=== PATIENT | female | born 1985 | race Two or more races ===

== ENCOUNTER 2025-04-23 18:13 | Emergency (ER) | payer SELFPAY ==
[~2025-04-23] VITALS: Ht 167.6 cm; Wt 63.0 kg
[2025-04-23 18:16] VITALS: BP 155/96; PULSE 108; RESP 18; TEMP 98.6; O2SAT 100
[2025-04-23] MEDS ORDERED: IBUPROFEN 400MG TABLET PO ONE (18:45)
[2025-04-23] MEDS ORDERED: ACETAMINOPHEN 500MG TABLET PO ONE (18:45)
== END 2025-04-23 20:00 | disposition left against medical advice (07) ==
LOC: ER 18:13
DX: M54.2 Cervicalgia (principal); E03.9 Hypothyroidism, unspecified
CPT/HCPCS: 99283